=== PATIENT | male | born 1940 | race Caucasian/White ===

== ENCOUNTER 2021-11-03 06:40 | Emergency (ER) | payer MEDICARE ==
[~2021-11-03 06:40] MED LIST: AMIODARONE HCL200 M1 PO; ASPIRIN EC81 MG PO; CERTAGEN1 EACH PO; CLARITIN10 MG PO; CLOPIDOGREL75 MG PO; ELIQUIS5 MG PO; EXELON1.5 MG PO; FLOVENT DISKUS50 MCG INH; KEFLEX250 MG PO; KEFLEX500 MG PO; LASIX20 MG PO; LIPITOR 10MG TA10 MG PO; LOPRESSOR25 MG PO; MAG-OXIDE 400M400 MG PO; METOPROLOL TAR100 MG PO; NAMENDA 10MG TA10 MG PO; NITROQUIK SL0.4 MG SL; NORCO 5-325 TA1 EACH PO; POTASSIUM CHLO10 MEQ PO; PROTONIX 40MG T40 MG PO; TESSALON PERLE100 MG PO; UROCIT-K10 MEQ PO; VENTOLIN (2.5 MG/3 M INH; VITAMIN B-121000 MC1 PO; VITAMIN B122500 MCG PO; VITAMIN D-32000 UNI1 PO
== END 2021-11-03 09:40 | disposition expired ==
LOC: FER 06:40
DX: I21.9 Acute myocardial infarction, unspecified (principal); I49.01 Ventricular fibrillation; I25.10 Atherosclerotic heart disease of native coronary artery without angina pectoris; I50.9 Heart failure, unspecified; F03.90 Unspecified dementia, unspecified severity, without behavioral disturbance, psychotic disturbance, mood disturbance, and anxiety; Z86.718 Personal history of other venous thrombosis and embolism; Z79.01 Long term (current) use of anticoagulants
CPT/HCPCS: 92950; J0171; J3475